=== PATIENT | male | born 1990 | race Caucasian/White ===

== ENCOUNTER 2019-04-12 21:17 | Emergency (ER) | payer BC ==
[~2019-04-12] VITALS: Ht 172.7 cm; Wt 59.0 kg
[2019-04-12 22:00] VITALS: BP_SYST 129
--- NOTE | 2019-04-12 22:05 | NUR ---
Patient triaged and placed in waiting room. VSS and patient appears in no acute distress at this time. Accompanied by MOTHER, awaiting available bed, and MD notified of need for MSE.
--- NOTE | 2019-04-12 22:33 | NUR ---
Pt ambulatory to bed hallway for evaluation
--- NOTE | 2019-04-12 22:49 | NUR ---
PATIENT COMPLAINING OF FEVER, BODY ACHES, PRODUCTIVE COUGH, AND CHEST CONGESTION. REPORTS DIFFICULTY TAKING DEEP BREATHS. PATIENT ABLE TO TALK IN FULL SENTENCES. DENIES ANY PAIN. NO OTHER COMPLAINTS/INJURIES PER PATIENT OR NOTED. WILL CONTINUE TO MONITOR.
--- NOTE | 2019-04-12 22:59 | NUR ---
ER Dr. Dale at bedside examining patient.
[2019-04-12] MEDS ORDERED: KETOROLAC TROMETHAMINE 30 MG VIAL IM ONE (23:00)
[2019-04-12] MEDS ORDERED: IPRATROPIUM/ALBUTEROL SULFATE 3 ML AMPUL.NEB (DUONEB) INH ONE (23:00)
--- NOTE | 2019-04-12 23:11 | NUR ---
Pt taken to radiology via wheelchair in stable condition
[2019-04-12 23:57] VITALS: BP_SYST 116
--- NOTE | 2019-04-12 23:57 | NUR ---
Patient given written and verbal discharge instructions and verbalizes understanding. ER MD discussed with patient the results and treatment provided. Patient in stable condition. ID arm band removed. Rx of tamiflu, naprosyn, albuterol and guaiatussin ac given. Patient educated on pain management and to follow up with PMD. Pain Scale 0/10 Opportunity for questions provided and answered. Medication side effect fact sheet provided.
== END 2019-04-12 23:57 | disposition home or self-care (01) ==
LOC: SED 21:17
DX: J10.1 Influenza due to other identified influenza virus with other respiratory manifestations (principal); Z87.891 Personal history of nicotine dependence; Z91.013 Allergy to seafood
CPT/HCPCS: 71045; 86710; 94640; 96372; 99284; J1885; J7620; 36415

== ENCOUNTER 2020-08-12 20:33 | Emergency (ER) | payer BC ==
[~2020-08-12] VITALS: Ht 172.7 cm; Wt 63.5 kg
[2020-08-12 20:49] VITALS: BP_SYST 125
--- NOTE | 2020-08-12 21:45 | NUR ---
Patient to ER bed 2 to gown for evaluation. Side rails up.
--- NOTE | 2020-08-12 21:50 | NUR ---
Patient BIB by family from home. C/O vomitting x today. Patient had three energy drink (Red bulls and [employer]) while was working, this morning, patient had nausea, vomitting and palpitation, Patient went to urgent care, They recommended to go to ER. (per patient reported)
--- NOTE | 2020-08-12 22:04 | NUR ---
ER at bedside examining patient.
[2020-08-12] MEDS: levalbuterol HCL 0.63 MG/3 ML VIAL.NEB INH ONE (22:44)
[2020-08-12] MEDS: NACL 0.9% 1,000 ML IV ONE (23:02)
[2020-08-12] MEDS: ONDANSETRON HCL 4 MG/2 ML VIAL IVP ONE (23:04)
[2020-08-12] MEDS: MORPHINE 2 MG/ML INJ. SYRINGE IVP ONE (23:07)
[2020-08-12] MEDS ORDERED: ALBMDI INH (23:36)
[2020-08-13 00:24] VITALS: BP_SYST 125
--- NOTE | 2020-08-13 00:24 | NUR ---
Patient given written and verbal discharge instructions and verbalizes understanding. ER MD discussed with patient the results and treatment provided. Patient in stable condition. ID arm band removed. IV catheter removed intact and dressing applied, no active bleeding. Rx of Albuterol given. Patient educated on pain management and to follow up with PMD. Pain Scale 0/10. Opportunity for questions provided and answered. Medication side effect fact sheet provided.
== END 2020-08-13 00:24 | disposition home or self-care (01) ==
LOC: SED 20:33
DX: R11.2 Nausea with vomiting, unspecified (principal); J45.909 Unspecified asthma, uncomplicated; Z88.6 Allergy status to analgesic agent
CPT/HCPCS: 96361; 94640; 96374; 96375; 99284; J2270; J2405; J7030; J7614